=== PATIENT | female | born 1950 | race Caucasian/White ===

== ENCOUNTER 2017-12-31 07:52 | Day surgery (SDC) ==
[2017-12-31] MEDS: TETRACAINE 0.5% UNIT-DOSE OP PRN ×4 (08:50→09:52)
[2017-12-31] MEDS: BETADINE OPTH PREP OP PRN ×2 (08:50→09:36)
[2017-12-31] MEDS: CYCLOGYL 2% OPTH OP PRN ×3 (08:50→09:00)
[2017-12-31] MEDS ORDERED: BRIMONIDINE TARTRATE 0.2% OPTH SOL OP PRN (09:01)
[2017-12-31] MEDS ORDERED: ZOFRAN 4 MG/2 ML IVP ONE (09:01)
[2017-12-31] MEDS ORDERED: LIDOCAINE 1% 20 ML MDV ID STA (09:01)
[2017-12-31] MEDS: DEX-MOXI-KETOR OPTH INJ 1/0.5/0.4 MG/ML IO ONE ×2 (09:40→09:53)
[2017-12-31] MEDS: BSS WITH EPINEPHRINE OP ONE ×2 (09:40→09:53)
[2017-12-31] MEDS: LIDOCAINE 1%/PHENYLEPHRINE 1.5% BSS (SURGERY) INTRAOCULA ONE ×2 (09:41→09:53)
[2017-12-31] MEDS ORDERED: DIPRIVAN 20 ML VIAL IVP ONE (09:50)
[2017-12-31] MEDS ORDERED: SUBLIMAZE ONE (09:50)
[2017-12-31] MEDS ORDERED: VERSED ONE (09:50)
[2017-12-31 13:19] VITALS: TEMP 97.6
[2018-01-02 11:10] VITALS: BP 126/58
== END 2017-12-31 10:38 | disposition home or self-care (01) ==
LOC: SURG 07:52
PROVIDERS: ATTEND Ophthalmology
DX: H25.812 Combined forms of age-related cataract, left eye (principal)

== ENCOUNTER 2018-01-07 08:56 | Day surgery (SDC) ==
[2018-01-07] MEDS: BETADINE OPTH PREP OP PRN ×2 (10:30→10:42)
[2018-01-07] MEDS: TETRACAINE 0.5% UNIT-DOSE OP PRN ×2 (10:30→10:42)
[2018-01-07] MEDS: CYCLOGYL 2% OPTH OP PRN ×3 (10:31→10:41)
[2018-01-07] MEDS ORDERED: LIDOCAINE 1% 20 ML MDV ID STA (10:38)
[2018-01-07] MEDS ORDERED: ZOFRAN 4 MG/2 ML IVP ONE (10:38)
[2018-01-07] MEDS ORDERED: DEX-MOXI-KETOR OPTH INJ 1/0.5/0.4 MG/ML IO ONE (10:38)
[2018-01-07] MEDS ORDERED: LIDOCAINE 1%/PHENYLEPHRINE 1.5% BSS (SURGERY) INTRAOCULA ONE (10:38)
[2018-01-07] MEDS ORDERED: BSS WITH EPINEPHRINE OP ONE (10:38)
[2018-01-07] MEDS ORDERED: BRIMONIDINE TARTRATE 0.2% OPTH SOL OP PRN (10:38)
[2018-01-07] MEDS ORDERED: VERSED ONE (10:55)
[2018-01-07] MEDS ORDERED: SUBLIMAZE ONE (10:55)
[2018-01-07 12:28] VITALS: TEMP 97.6
[2018-01-07 16:40] VITALS: BP 135/52
== END 2018-01-07 11:45 | disposition home or self-care (01) ==
LOC: SURG 08:56
PROVIDERS: ATTEND Ophthalmology
DX: H25.812 Combined forms of age-related cataract, left eye (principal)